=== PATIENT | female | born 1935 | race African-American/Black ===

== ENCOUNTER 2021-10-04 13:35 | Outpatient (CLI) | payer MEDICARE, MEDICAID, SELFPAY | END 2021-10-04 13:36 | disposition home or self-care (01) | PROVIDERS: PCP Otolaryngology; Visit Provider Otolaryngology | DX: H90.3 Sensorineural hearing loss, bilateral (principal) | CPT/HCPCS: 92567 ==

== ENCOUNTER 2021-11-28 11:24 | Outpatient (CLI) | payer MEDICARE, MEDICAID, SELFPAY | END 2021-11-28 11:25 | disposition home or self-care (01) | LOC: ANHAUDIO 11:26 | PROVIDERS: PCP Otolaryngology; Visit Provider Otolaryngology | DX: H90.3 Sensorineural hearing loss, bilateral (principal) | CPT/HCPCS: 92557; 92567 ==